=== PATIENT | female | born 1965 | race Caucasian/White ===

== ENCOUNTER 2017-11-03 10:14 | Emergency (ER) | payer BC ==
[2017-11-03 10:19] VITALS: RESP 18; TEMP 98.5
--- NOTE | 2017-11-03 10:31 | ED ---
General Adult HPI - General Chief complaint: Syncope Stated complaint: syncopal episode Time Seen by Provider: 11/03/17 10:22 Source: patient, RN notes reviewed, old records reviewed Mode of arrival: ambulatory Limitations: no limitations - History of Present Illness Initial comments: This is a 32-year-old female the ER for evaluation of syncopal event. Patient had syncopal event yesterday after waking up. She denies feeling dizzy lightheaded, felt normal throughout the day, no complaints of headache chest pain shortness of breath or abdominal pain. Patient did call her family doctor today who told to come to the ER for evaluation. Patient currently remains without complaint - Related Data Home Medications Medication Instructions Recorded Confirmed Cholecalciferol [Vitamin D3] 1,000 unit PO DAILY 11/03/17 11/03/17 Ferrous Sulfate [Feosol] 325 mg PO DAILY 11/03/17 11/03/17 Multivitamins, Thera [Multivitamin 1 tab PO DAILY 11/03/17 11/03/17 (formulary)] Allergies Allergy/AdvReac Type Severity Reaction Status Date / Time amoxicillin Allergy Rash/Hives Verified 11/03/17 10:37 Review of Systems ROS Statement: Those systems with pertinent positive or pertinent negative responses have been documented in the HPI. ROS Other: All systems not noted in ROS Statement are negative. Past Medical History Additional Past Medical History / Comment(s): low iron- takes pills History of Any Multi-Drug Resistant Organisms: None Reported Past Surgical History: Section Additional Past Surgical History / Comment(s): breast biopsy Past Psychological History: No Psychological Hx Reported Smoking Status: Never smoker Past Alcohol Use History: Occasional Past Drug Use History: None Reported General Exam Limitations: no limitations General appearance: alert, in no apparent distress Head exam: Present: atraumatic, normocephalic, normal inspection Eye exam: Present: normal appearance, PERRL, EOMI. Absent: scleral icterus, conjunctival injection, periorbital swelling ENT exam: Present: normal exam, mucous membranes moist Neck exam: Present: normal inspection. Absent: tenderness, meningismus, lymphadenopathy Respiratory exam: Present: normal lung sounds bilaterally. Absent: respiratory distress, wheezes, rales, rhonchi, stridor Cardiovascular Exam: Present: regular rate, normal rhythm, normal heart sounds. Absent: systolic murmur, diastolic murmur, rubs, gallop, clicks GI/Abdominal exam: Present: soft, normal bowel sounds. Absent: distended, tenderness, guarding, rebound, rigid Extremities exam: Present: normal inspection, full ROM, normal capillary refill. Absent: tenderness, pedal edema, joint swelling, calf tenderness Back exam: Present: normal inspection Neurological exam: Present: alert, oriented X3, CN II-XII intact Psychiatric exam: Present: normal affect, normal mood Skin exam: Present: warm, dry, intact, normal color. Absent: rash Course Vital Signs 11/03/17 11/03/17 11/03/17 10:15 11:25 12:36 Temperature 98.5 F Pulse Rate 84 93 71 Respiratory 18 18 18 Rate Blood Pressure 137/59 134/82 143/77 O2 Sat by Pulse 95 97 100 Oximetry - Reevaluation(s) Reevaluation #1: 11/03/17 12:53 Patient is without syncopal event here in the ER EKG Findings - EKG Comments: EKG Findings:: EKG shows sinus rhythm rate of 75, ME 164, QRS 80, QTC 437 Medical Decision Making - Medical Decision Making 52 female the ER with syncopal event. No recurrent symptoms. Event happened yesterday. Patient here in the ER with normal testing, normal exam, CT labwork is normal. Patient can be discharged home - Lab Data Result diagrams: 11/03/17 10:35 11/03/17 10:35 Lab Results 11/03/17 11/03/17 11/03/17 Range/Units 10:35 10:35 10:35 WBC 5.5 (3.8-10.6) k/uL RBC 4.84 (3.80-5.40) m/uL Hgb 14.3 (11.4-16.0) gm/dL Hct 43.2 (34.0-46.0) % MCV 89.2 (80.0-100.0) fL MCH 29.6 (25.0-35.0) pg MCHC 33.1 (31.0-37.0) g/dL RDW 12.7 (11.5-15.5) % Plt Count 246 (150-450) k/uL Neutrophils % 57 % Lymphocytes % 32 % Monocytes % 6 % Eosinophils % 3 % Basophils % 1 % Neutrophils # 3.1 (1.3-7.7) k/uL Lymphocytes # 1.8 (1.0-4.8) k/uL Monocytes # 0.3 (0-1.0) k/uL Eosinophils # 0.2 (0-0.7) k/uL Basophils # 0.1 (0-0.2) k/uL PT (9.0-12.0) sec INR (<1.2) APTT (22.0-30.0) sec D-Dimer (<0.60) mg/L FEU Sodium 144 (137-145) mmol/L Potassium 4.2 (3.5-5.1) mmol/L Chloride 108 H (98-107) mmol/L Carbon Dioxide 24 (22-30) mmol/L Anion Gap 12 mmol/L BUN 13 (7-17) mg/dL Creatinine 0.64 (0.52-1.04) mg/dL Est GFR (CKD-EPI)AfAm >90 (>60 ml/min/1.73 sqM) Est GFR (CKD-EPI)NonAf >90 (>60 ml/min/1.73 sqM) Glucose 87 (74-99) mg/dL Calcium 9.4 (8.4-10.2) mg/dL Phosphorus 3.2 (2.5-4.5) mg/dL Magnesium 2.0 (1.6-2.3) mg/dL Total Bilirubin 0.3 (0.2-1.3) mg/dL AST 21 (14-36) U/L ALT 25 (9-52) U/L Alkaline Phosphatase 54 (38-126) U/L Total Creatine Kinase 30 (30-135) U/L CK-MB (CK-2) 0.6 (0.0-2.4) ng/mL CK-MB (CK-2) Rel Index 2.0 Troponin I <0.012 (0.000-0.034) ng/mL Total Protein 6.4 (6.3-8.2) g/dL Albumin 4.3 (3.5-5.0) g/dL Urine Color Urine Appearance (Clear) Urine pH (5.0-8.0) Ur Specific [place] (1.001-1.035) Urine Protein (Negative) Urine Glucose (UA) (Negative) Urine Ketones (Negative) Urine Blood (Negative) Urine Nitrite (Negative) Urine Bilirubin (Negative) Urine Urobilinogen (<2.0) mg/dL Ur Leukocyte Esterase (Negative) Urine RBC (0-5) /hpf Urine WBC (0-5) /hpf Ur Squamous Epith Cells (0-4) /hpf Urine Bacteria (None) /hpf Urine Mucus (None) /hpf 11/03/17 11/03/17 Range/Units 10:35 11:35 WBC (3.8-10.6) k/uL RBC (3.80-5.40) m/uL Hgb (11.4-16.0) gm/dL Hct (34.0-46.0) % MCV (80.0-100.0) fL MCH (25.0-35.0) pg MCHC (31.0-37.0) g/dL RDW (11.5-15.5) % Plt Count (150-450) k/uL Neutrophils % % Lymphocytes % % Monocytes % % Eosinophils % % Basophils % % Neutrophils # (1.3-7.7) k/uL Lymphocytes # (1.0-4.8) k/uL Monocytes # (0-1.0) k/uL Eosinophils # (0-0.7) k/uL Basophils # (0-0.2) k/uL PT 10.4 (9.0-12.0) sec INR 1.1 (<1.2) APTT 22.3 (22.0-30.0) sec D-Dimer 0.63 H (<0.60) mg/L FEU Sodium (137-145) mmol/L Potassium (3.5-5.1) mmol/L Chloride (98-107) mmol/L Carbon Dioxide (22-30) mmol/L Anion Gap mmol/L BUN (7-17) mg/dL Creatinine (0.52-1.04) mg/dL Est GFR (CKD-EPI)AfAm (>60 ml/min/1.73 sqM) Est GFR (CKD-EPI)NonAf (>60 ml/min/1.73 sqM) Glucose (74-99) mg/dL Calcium (8.4-10.2) mg/dL Phosphorus (2.5-4.5) mg/dL Magnesium (1.6-2.3) mg/dL Total Bilirubin (0.2-1.3) mg/dL AST (14-36) U/L ALT (9-52) U/L Alkaline Phosphatase (38-126) U/L Total Creatine Kinase (30-135) U/L CK-MB (CK-2) (0.0-2.4) ng/mL CK-MB (CK-2) Rel Index Troponin I (0.000-0.034) ng/mL Total Protein (6.3-8.2) g/dL Albumin (3.5-5.0) g/dL Urine Color Light Yellow Urine Appearance Clear (Clear) Urine pH 6.5 (5.0-8.0) Ur Specific [place] 1.007 (1.001-1.035) Urine Protein Negative (Negative) Urine Glucose (UA) Negative (Negative) Urine Ketones Negative (Negative) Urine Blood Trace H (Negative) Urine Nitrite Negative (Negative) Urine Bilirubin Negative (Negative) Urine Urobilinogen <2.0 (<2.0) mg/dL Ur Leukocyte Esterase Moderate H (Negative) Urine RBC 2 (0-5) /hpf Urine WBC 6 H (0-5) /hpf Ur Squamous Epith Cells 1 (0-4) /hpf Urine Bacteria Rare H (None) /hpf Urine Mucus Rare H (None) /hpf - Radiology Data Radiology results: report reviewed (CT brain C-spine and facial bones, CTA chest negative for acute disease), image reviewed Disposition Clinical Impression: Vasovagal syncope Disposition: HOME SELF-CARE Condition: Good Instructions: Syncope (ED) Is patient prescribed a controlled substance at d/c from ED?: No Referrals: Teja Florian DO [Primary Care Provider] - 1-2 days
[2017-11-03 10:50] LABS: Basophils # (A) 0.1 k/uL (0-0.2); Basophils % (A) 1 %; Eosinophils # (A) 0.2 k/uL (0-0.7); Eosinophils % (A) 3 %; HCT 43.2 % (34.0-46.0); HGB 14.3 gm/dL (11.4-16.0); Lymphocytes # (A) 1.8 k/uL (1.0-4.8); Lymphocytes % (A) 32 %; MCH 29.6 pg (25.0-35.0); MCHC 33.1 g/dL (31.0-37.0); MCV 89.2 fL (80.0-100.0); Mean Platelet Volume 7.3; Monocytes # (A) 0.3 k/uL (0-1.0); Monocytes % (A) 6 %; Neutrophils # (A) 3.1 k/uL (1.3-7.7); Neutrophils % (A) 57 %; Platelet Count 246 k/uL (150-450); RBC 4.84 m/uL (3.80-5.40); RDW 12.7 % (11.5-15.5); WBC 5.5 k/uL (3.8-10.6)
[2017-11-03 11:00] LABS: ALT 25 U/L (9-52); AST 21 U/L (14-36); Albumin 4.3 g/dL (3.5-5.0); Alkaline Phosphatase 54 U/L (38-126); Anion Gap 12 mmol/L; Blood Urea Nitrogen 13 mg/dL (7-17); Calcium 9.4 mg/dL (8.4-10.2); Carbon Dioxide 24 mmol/L (22-30); Chloride 108 mmol/L (98-107); Glucose 87 mg/dL (74-99); Phosphorus 3.2 mg/dL (2.5-4.5); Potassium 4.2 mmol/L (3.5-5.1); Sodium 144 mmol/L (137-145); Total Bilirubin 0.3 mg/dL (0.2-1.3); Total Protein 6.4 g/dL (6.3-8.2)
--- NOTE | 2017-11-03 11:06 | CT ---
EXAMINATION TYPE: CT brain cspine wo con, CT facial bones wo con DATE OF EXAM: 11/03/2017 COMPARISON: NONE HISTORY: Syncopal episode yesterday with left sided orbital injury, facial and neck pain, and headach e. CT DLP: 1385.1 (accession [id number]), 603 (accession [id number]) mGycm. Automated Exposure Control for D ose Reduction was Utilized. TECHNIQUE: CT scan of the head and cervical spine are performed without contrast. FINDINGS: There is no acute intracranial hemorrhage, mass effect, or midline shift identified. The ventricles and sulci are within normal limits in size. Murray-white matter differentiation is maintain ed. The calvarium is intact. Mandible is intact. Temporomandibular joints are maintained bilaterally. The nasal bones are intact. The orbital floors and newby are intact. The globes are intact bilaterally. Intraconal fat is preserv ed. The zygomatic arches are intact. The pterygoid plates are intact. Visualized paranasal sinuses ar e clear. There are nonformed frontal sinuses noted. Cervical spine is visualized in its entirety from C1 through upper thoracic levels and demonstrates s traightened alignment without evidence of acute fracture or dislocation. Prevertebral soft tissue ap pears within normal limits. The C1-C2 articulation is within normal limits on the coronal images. Ve rtebral body heights and disc space heights are maintained. There are mild uncovertebral facet degene rative changes bilaterally. Spinal canal is preserved. Thyroid gland is felt within normal limits. Nallely ng apices are clear. IMPRESSION: 1. There is no acute fracture or dislocation evident in the cervical spine. 2. No acute intracranial hemorrhage, mass effect, or midline shift is seen. 3. No acute facial bone fracture or dislocation is seen.
[2017-11-03 11:11] LABS: INR 1.1 (<1.2); Partial Thromboplastin Time 22.3 sec (22.0-30.0); Prothrombin Time 10.4 sec (9.0-12.0)
[2017-11-03 11:13] LABS: Creatine Kinase 30 U/L (30-135)
[2017-11-03 11:22] LABS: D-Dimer 0.63 mg/L FEU (<0.60)
--- NOTE | 2017-11-03 11:22 | XR ---
EXAMINATION TYPE: XR chest 2V DATE OF EXAM: 11/03/2017 COMPARISON: NONE HISTORY: Syncope, weakness TECHNIQUE: Frontal and lateral views of the chest are obtained. FINDINGS: There is no focal air space opacity, pleural effusion, or pneumothorax seen. The cardiac silhouette size is within normal limits. There are overlying cardiac leads. The osseous structures are intact. IMPRESSION: No acute cardiopulmonary process.
[2017-11-03] MEDS ORDERED: RX INFO: IV CONTRAST WAS GIVEN 1 EACH MISC MISCELLANE PRN (11:23)
[2017-11-03 11:25] LABS: Creatine Kinase MB 0.6 ng/mL (0.0-2.4); Troponin I <0.012 ng/mL (0.000-0.034)
[2017-11-03 11:55] LABS: Appearance,Urine Clear (Clear); Bacteria,Urine Rare /hpf; Bilirubin,Urine Negative (Negative); Blood,Urine Trace (Negative); Color,Urine Light Yellow; Glucose,Urine (UA) Negative (Negative); Ketones,Urine Negative (Negative); Leukocyte Esterase,Urine Moderate (Negative); Mucus,Urine Rare /hpf; Nitrite,Urine Negative (Negative); PH, Urine 6.5 (5.0-8.0); Protein,Urine Negative (Negative); RBC,Urine 2 /hpf (0-5); Specific Gravity,Urine 1.007 (1.001-1.035); Squamous Epithelial Cell,Urine 1 /hpf (0-4); Urobilinogen,Urine <2.0 mg/dL (<2.0); WBC,Urine 6 /hpf (0-5)
--- NOTE | 2017-11-03 12:30 | CT ---
EXAMINATION TYPE: CT angio chest DATE OF EXAM: 11/03/2017 COMPARISON: NONE HISTORY: Syncopal episode CT DLP: 214.80 mGycm. Automated Exposure Control for Dose Reduction was Utilized. CONTRAST: CTA scan of the thorax is performed with IV Contrast, patient injected with 100 ml mL of Isovue 370, pulmonary embolism protocol. MIP Images are created on CT scanner and reviewed. FINDINGS: LUNGS: The lungs are grossly clear, there is no concerning parenchymal mass or nodule identified. T here is no pleural effusion or pneumothorax seen. The tracheobronchial tree is patent. MEDIASTINUM: There is satisfactory enhancement of the pulmonary artery and its branches, there is no CT evidence for pulmonary embolism. There are no greater than 1 cm hilar or mediastinal lymph nodes. No cardiomegaly or pericardial effusion is seen. OTHER: No additional significant abnormality is seen. IMPRESSION: No CT evidence for acute pulmonary embolism. No suspicious acute cardiopulmonary process.
[2017-11-03 12:37] VITALS: BP 143/77; PULSE 71
== END 2017-11-03 13:12 | disposition home or self-care (01) ==
LOC: EC 10:14
DX: R55 Syncope and collapse (principal); Z88.0 Allergy status to penicillin
CPT/HCPCS: 36415; 93005; 85379; 80053; 82550; 82553; 83735; 84100; 84484; 85025; 85610; 85730; 81001; 71046; 72125; 70486; 70450; 71275; 99285; Q9967

== ENCOUNTER → 2017-12-31 | Outpatient (CLI) | payer BC ==
[2017-12-31 13:51] LABS: Basophils # (A) 0.1 k/uL (0-0.2); Basophils % (A) 1 %; Eosinophils # (A) 0.1 k/uL (0-0.7); Eosinophils % (A) 2 %; HCT 42.5 % (34.0-46.0); HGB 14.4 gm/dL (11.4-16.0); Lymphocytes # (A) 2.2 k/uL (1.0-4.8); Lymphocytes % (A) 32 %; MCH 30.7 pg (25.0-35.0); MCHC 33.8 g/dL (31.0-37.0); MCV 90.9 fL (80.0-100.0); Mean Platelet Volume 6.5; Monocytes # (A) 0.4 k/uL (0-1.0); Monocytes % (A) 6 %; Neutrophils % (A) 57 %; Platelet Count 231 k/uL (150-450); RBC 4.68 m/uL (3.80-5.40); RDW 13.3 % (11.5-15.5)
[2017-12-31 15:22] LABS: Anion Gap 13 mmol/L; Blood Urea Nitrogen 12 mg/dL (7-17); Calcium 9.2 mg/dL (8.4-10.2); Carbon Dioxide 20 mmol/L (22-30); Chloride 106 mmol/L (98-107); Glucose 67 mg/dL (74-99); Potassium 4.1 mmol/L (3.5-5.1); Sodium 139 mmol/L (137-145)
== END | disposition home or self-care (01) ==
LOC: LABPAT 13:29
PROVIDERS: ATTEND Obstetrics & Gynecology
DX: Z01.812 Encounter for preprocedural laboratory examination (principal)
CPT/HCPCS: 36415; 80048; 85025; 86850; 86900; 86901

== ENCOUNTER 2018-01-13 05:33 | Inpatient (IN) | payer BC ==
[2018-01-02 15:32] VITALS: BMI 33.2
--- NOTE | 2018-01-12 18:38 | P.HPOB ---
History of Present Illness H&P Date: 01/12/18 Chief Complaint: Uterine fibroids, pelvic pain, dyspareunia This is a 52-year-old female 2 para 2 who presents for total abdominal hysterectomy with bilateral salpingo-oophorectomy secondary to large uterine fibroids, dyspareunia, and pelvic pain. Her latest ultrasound showed uterus measuring 12.3 x 9.8 x 8.6 cm and containing at least 3 fibroids. The largest measured 5 cm. Neither ovary was visualized. Her current symptoms include irregular menses with moderate dysmenorrhea. She also complains of pelvic pressure, pelvic pain and worsening dyspareunia. Her pain radiates to her lower back. She wishes definitive surgical treatment to treat her pain and dyspareunia. Her menses are occurring every 1-2 months and lasting 3 days with very heavy flow on the first day to where she has to change a pad and tampon every 1-2 hours. Obstetrical history: . History of 2 deliveries. Gynecologic history: No history of sexual transmitted diseases. She has had a tubal ligation. Social history: She is . 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 [employer] Constitutional: Denies chills, Denies fever Eyes: denies blurred vision, denies pain Ears, nose, mouth and throat: Denies headache, Denies sore throat Cardiovascular: Denies chest pain, Denies shortness of breath Respiratory: Denies cough Gastrointestinal: Denies abdominal pain, Denies diarrhea, Denies nausea, Denies vomiting Genitourinary: Reports dyspareunia, Reports menorrhagia, Reports pelvic pain, Reports prolapse symptoms Menstruation: Reports menses variable, Reports period heavy Musculoskeletal: Reports low back pain Integumentary: Denies pruritus, Denies rash Neurological: Denies numbness, Denies weakness Psychiatric: Denies anxiety, Denies depression Endocrine: Denies fatigue, Denies weight change Past Medical History Past Medical History: Musculoskeletal Disorder, Osteoarthritis (OA) Additional Past Medical History / Comment(s): Hx of low iron, better now. "Had one fainting episode 11/07, was checked out and found nothing wrong." Degenerative disc in back (L5), back pain. History of Any Multi-Drug Resistant Organisms: None Reported Past Surgical History: Section, Tubal Ligation Additional Past Surgical History / Comment(s): Breast biopsy. Past Anesthesia/Blood Transfusion Reactions: Postoperative Nausea & Vomiting ( PONV) Past Psychological History: No Psychological Hx Reported Smoking Status: Never smoker Past Alcohol Use History: Occasional Past Drug Use History: None Reported - Past Family History Father Family Medical History: Deep Vein Thrombosis (DVT) Medications and Allergies Home Medications Medication Instructions Recorded Confirmed Type Cholecalciferol [Vitamin D3] 1,000 unit PO DAILY 11/03/17 01/02/18 History Multivitamins, Thera [Multivitamin 1 tab PO DAILY 11/03/17 01/02/18 History (formulary)] Allergies Allergy/AdvReac Type Severity Reaction Status Date / Time amoxicillin Allergy Rash/Hives Verified 01/02/18 15:19 Exam Osteopathic Statement: *. No significant issues noted on an osteopathic structural exam other than those noted in the History and Physical/Consult. HEENT: Within normal limits Heart: Regular rate and rhythm Lungs: Clear to auscultation bilaterally Abdomen: Soft, nontender Pelvic exam: Uterus is enlarged approximate 14-15 week size nodular and tender. No adnexal masses are palpated however it is difficult to palpate due to her bulky uterus. She does have second-degree cystocele and first-degree rectocele , There is no uterine prolapse. The nasal: Negative Homans Assessment and Plan (1) Uterine fibroid Status: Acute Code(s): D25.9 - LEIOMYOMA OF UTERUS, UNSPECIFIED SNOMED Code( s): 34408008 (2) Pelvic pain Status: Acute Code(s): R10.2 - PELVIC AND PERINEAL PAIN SNOMED Code(s): 26322078 (3) Dyspareunia Status: Acute Code(s): XDB3344 - SNOMED Code(s): 38345025 Plan: Proceed with total abdominal hysterectomy with bilateral salpingo-oophorectomy. I have discussed the risks, benefits, and alternative therapies for the above- mentioned procedure and for both sedation/anesthesia as well as necessary blood products administration, if indicated, as they pertain to this patient. The patient has indicated her understanding and acceptance of the risks and procedures discussed.
[~2018-01-13 05:33] MED LIST: DEXAMETHASONE SOD PHOSPHATE 10 MG/ML 1 ML VIAL IV ONE; HYDROmorphone 0.5 MG/0.5 ML SYRINGE IVP PRN; LIDOCAINE 1% 20 ML VIAL (10MG/ML) FOR IV START INTRADERMA PRN; MIDAZOLAM 2 MG/2 ML VIAL IV PRN; ONDANSETRON 4 MG/2 ML VIAL IVP ONE; SCOPOLAMINE 1.5MG/72HR PATCH TRANSDERM ONE; ceFAZolin IN SWFI 2 GM/20 ML SYRINGE IVP ONE
[2018-01-13] MEDS ORDERED: LACTATED RINGERS 1,000 ML IV ONE ×3 (06:17→08:06)
--- NOTE | 2018-01-13 08:57 | P.OP ---
Date of Procedure: 01/13/18 Preoperative Diagnosis: 1. Uterine fibroids. 2. Pelvic pain. 3. And dyspareunia. Postoperative Diagnosis: Same Procedure(s) Performed: Total abdominal hysterectomy with bilateral salpingo-oophorectomy Anesthesia: GETA, spinal (Duramorph) Surgeon: Mindy Mitchell Profiling Machine Set Up Operator #1: Xochitl Vazquez Estimated Blood Loss (ml): 250 Urine output (ml): 300 Pathology: other (Uterus with cervix and bilateral tubes and ovaries) Condition: stable Disposition: floor Indications for Procedure: This is a 52-year-old female 2 para 2 who presents for total abdominal hysterectomy with bilateral salpingo-oophorectomy secondary to large uterine fibroids, dyspareunia, and pelvic pain. Her latest ultrasound showed uterus measuring 12.3 x 9.8 x 8.6 cm and containing at least 3 fibroids. The largest measured 5 cm. Neither ovary was visualized. Her current symptoms include irregular menses with moderate dysmenorrhea. She also complains of pelvic pressure, pelvic pain and worsening dyspareunia. Her pain radiates to her lower back. She wishes definitive surgical treatment to treat her pain and dyspareunia. Her menses are occurring every 1-2 months and lasting 3 days with very heavy flow on the first day to where she has to change a pad and tampon every 1-2 hours. Operative Findings: Uterus is enlarged and bulky with multiple fibroids. Both ovaries appeared small and atrophic. Normal tubes are noted. Description of Procedure: The patient is taken to the operating room where she is placed in the dorsal supine position. She is prepped and draped in the normal sterile fashion including Danielle catheter insertion and vaginal prep. A Pfannenstiel skin incision is made with a scalpel. A second knife was used to carry the incision down to the underlying layer of fascia. The fascia was nicked in the midline with a scalpel and then extended laterally bilaterally with Wheeler scissors. The superior aspect of the fascial incision was grasped with Celestine clamps, elevated off the underlying rectus muscle in the midline and then cut with Wheeler scissors. The inferior aspect of the fascial incision was grasped with Celestine clamps, elevated off the underlying rectus muscle in the midline and then cut with Wheeler scissors. Next the peritoneum was identified and entered sharply with Wheeler scissors. It is extended superiorly and in fairly with Metzenbaum scissors with good visualization of underlying structures. Next the Radha retractor is placed in the bladder blade was inserted. The bowels were packed with a 3 yard laparotomy sponge. Next the uterus is brought up incision and the corneal regions are grasped with Pavithra clamps on both sides. The infundibulopelvic ligament was clamped on either side with a Meredith clamp, cut with Wheeler scissors, and sutured with 0 Vicryl suture in Meerdith transfixion stitches. The remaining uterine ovarian ligament and round ligament was clamped on either side with a Meredith clamp, cut with Wheeler scissors, and sutured with 0 Vicryl suture in Meredith transfixion stitches. The vesicouterine peritoneum was sharply dissected away from the bladder with Metzenbaum scissors and pushed inferiorly. The uterine arteries are clamped on either side with a Meredith clamp. The uterine arteries are then cut with Wheeler scissors, and sutured with 0 Vicryl suture in Meredith transfixion stitches. Next the cardinal ligaments were clamped on either side with Meredith clamp, cut with Wheeler scissors , and sutured with 0 Vicryl suture in Meredith transfixion stitches. The uterosacral ligaments are clamped on either side with Meredith clamps, cut with Wheeler scissors, and sutured with 0 Vicryl suture in Meredith transfixion stitches on either side. The edges of the vaginal cuff were clamped on either side with a Meredith clamp, cut with Wheeler scissors, and sutured with 0 Vicryl suture in Meredith transfixion stitches and held on either side. The vaginal mucosa was then cut just below the level of the cervix and the specimen is removed from the field. The edges of the vaginal cuff were held with Celestine clamps. Next the previously held corners of each side of the vaginal cuff were then whipstitched along the connective tissue on either side and brought through the corner of the cuff and tied. Next the vaginal cuff was sutured with 0 Vicryl suture in a running locked fashion. One interrupted stitches placed for hemostasis. Good hemostasis was noted. Copious irrigation is carried out with warm saline. Excellent hemostasis is noted. All sponges are removed from the abdomen and sponge counts are correct. The peritoneum is then closed with 0 Vicryl suture in a running fashion. The muscle was then reapproximated with 0 Vicryl suture in interrupted fashion. The fascia layer is then closed with 0 PDS suture in a running fashion with the knots buried on either side and in the midline. Next the subcutaneous tissues closed with 3-0 Vicryl suture in a running fashion. The skin is closed with naz. All sponge and needle counts are correct and the patient is taken to recovery room in stable condition.
[2018-01-13] MEDS ORDERED: HYDROmorphone 1 MG/ML 1 ML SYRINGE IVP ONE (09:07)
[2018-01-13] MEDS ORDERED: diphenhydrAMINE 50 MG/ML 1 ML VIAL IVP PRN (10:44)
[2018-01-13] MEDS ORDERED: ZOLPIDEM 5 MG TAB PO PRN (10:44)
[2018-01-13] MEDS ORDERED: ONDANSETRON 4 MG/2 ML VIAL IVP PRN (10:44)
[2018-01-13] MEDS ORDERED: METOCLOPRAMIDE 5 MG/ML 2 ML VIAL IVP PRN (10:44)
[2018-01-13] MEDS ORDERED: SIMETHICONE 80 MG CHEWABLE PO PRN (10:44)
[2018-01-13] MEDS ORDERED: Acetaminophen-Codeine 300-30mg TAB PO PRN ×2 (10:44)
[2018-01-13] MEDS ORDERED: NALOXONE 0.4 MG/ML 1 ML VIAL IV PRN (11:52)
[2018-01-13] MEDS ORDERED: NALBUPHINE 10 MG/ML VIAL (10ML MDV) IV PRN (11:52)
[2018-01-13] MEDS: SENNOSIDES-DOCUSATE SODIUM 1 EACH TAB PO SCH ×2 (12:33→22:39)
[2018-01-13] MEDS: LACTATED RINGERS 1,000 ML IV SCH (12:33)
[2018-01-13] MEDS: KETOROLAC 30 MG/ML 1 ML VIAL IVP PRN ×2 (14:34→20:39)
[2018-01-13 22:34] VITALS: RESP 16
[2018-01-14] MEDS: KETOROLAC 30 MG/ML 1 ML VIAL IVP PRN ×2 (04:15→09:22)
--- NOTE | 2018-01-14 05:31 | P.PN ---
Progress Note - Text Progress Note Date: 01/14/18 Postoperative day 1 status post total abdominal hysterectomy under general anesthesia with intrathecal Duramorph for postoperative analgesia.The patient is doing well. The patient denies any paresthesia or weakness in the lower extremities There are no other anesthesia related complications. Further management as per the patient primary team.
[2018-01-14] MEDS: SENNOSIDES-DOCUSATE SODIUM 1 EACH TAB PO SCH ×2 (07:32→21:15)
[2018-01-14] MEDS: LACTATED RINGERS 1,000 ML IV SCH (07:55)
--- NOTE | 2018-01-14 08:18 | P.PN ---
Subjective Progress Note Date: 01/14/18 Principal diagnosis: Status post SEVEN/BSO postoperative day #1 Patient is doing well. She is ambulating. She is passing some flatus. Pain is fairly well controlled at this time. She has not urinated yet but her catheter was just removed less than an hour ago. Bleeding is minimal. Objective - Vital Signs Vital signs: Vital Signs Temp 98.9 F 01/14/18 07:50 Pulse 71 01/14/18 07:50 Resp 16 01/14/18 07:50 BP 136/75 01/14/18 07:50 Pulse Ox 96 01/14/18 07:50 Intake & Output 01/13/18 01/14/18 01/14/18 18:59 06:59 18:59 Intake Total 1160 Output Total 1200 1850 Balance -40 -1850 Weight 77.111 kg Intake: IV 800 Oral 360 Output: Urine 950 1850 Estimated Blood Loss 250 Other: Voiding Method Indwelling Catheter Indwelling Catheter - Constitutional General appearance: Present: cooperative, no acute distress - Gastrointestinal Gastrointestinal Comment(s): Incision is clean dry and intact with naz in place. General gastrointestinal: Present: normal bowel sounds, soft. Absent: tenderness Assessment and Plan Assessment: Impression is status post SEVEN/BSO postoperative day #1 (1) Uterine fibroid Current Visit: No Status: Acute Code(s): D25.9 - LEIOMYOMA OF UTERUS, UNSPECIFIED SNOMED Code(s): 71013471 (2) Pelvic pain Current Visit: No Status: Acute Code(s): R10.2 - PELVIC AND PERINEAL PAIN SNOMED Code(s): 82288852 (3) Dyspareunia Current Visit: No Status: Acute Code(s): [id number] - SNOMED Code(s): 34206980 Plan: Will advance diet as tolerated. Encouraged ambulation. Will switch to oral pain medication today.
[2018-01-14 08:20] LABS: Basophils % (A) 0 %; Eosinophils % (A) 1 %; HGB 12.3 gm/dL (11.4-16.0); Lymphocytes # (A) 2.1 k/uL (1.0-4.8); Lymphocytes % (A) 27 %; MCH 29.5 pg (25.0-35.0); MCHC 32.4 g/dL (31.0-37.0); Mean Platelet Volume 6.5; Monocytes # (A) 0.5 k/uL (0-1.0); Monocytes % (A) 6 %; Neutrophils % (A) 64 %; Platelet Count 242 k/uL (150-450); RBC 4.18 m/uL (3.80-5.40); RDW 12.9 % (11.5-15.5); WBC 7.8 k/uL (3.8-10.6)
[2018-01-14] MEDS: IBUPROFEN 600 MG TAB PO PRN (17:39)
[2018-01-14] MEDS: ACETAMINOPHEN TAB 325 MG TAB PO PRN (21:15)
[2018-01-14] MEDS ORDERED: IBUPROFEN 600 MG TAB PO ONE (23:50)
[2018-01-15] MEDS: ACETAMINOPHEN TAB 325 MG TAB PO PRN (05:19)
[2018-01-15] MEDS: IBUPROFEN 600 MG TAB PO PRN (07:32)
[2018-01-15 07:48] VITALS: BP 144/79; PULSE 71; TEMP 98.1
--- NOTE | 2018-01-15 08:20 | P.DS ---
Providers Date of admission: 01/13/18 05:33 Expected date of discharge: 01/15/18 Attending physician: Mindy Mitchell Primary care physician: Teja Florian - Discharge Diagnosis(es) (1) Uterine fibroid Current Visit: No Status: Acute (2) Pelvic pain Current Visit: No Status: Acute (3) Dyspareunia Current Visit: No Status: Acute Hospital Course: This is a 52-year-old female who underwent a total abdominal hysterectomy with bilateral submental nephrectomy on 01/13/2018. Her postoperative course has been uncomplicated. She did have a spinal Duramorph for the first 24 hours and then switch to oral pain medication. Her pain is fairly well controlled with ibuprofen. She did not like the Tylenol with Codeine due to stomach issues. She does not wish to try [place]. She is passing flatus but no bowel movement yet. She is ambulating. Bleeding is minimal. She is urinating without difficulty. Vital signs are stable. Abdomen is soft with positive bowel sounds 4. Incision is clean dry and intact. Extremities show negative Homans. Impression is status post total abdominal hysterectomy with bilateral topical nephrectomy postoperative day #2. Plan is to discharge home today. Lewis will be removed and Steri-Strips placed prior to discharge. She is advised follow-up in the office in 1 week for a postoperative check. She will be given prescription for ibuprofen. She is advised to call the office if she has any further questions or concerns prior to her appointment time. Procedures: Total abdominal hysterectomy with bilateral salpingo-oophorectomy on 01/13/2018 Patient Condition at Discharge: Stable Plan - Discharge Summary Discharge Rx Participant: Yes New Discharge Prescriptions: New Ibuprofen [Motrin] 600 mg PO Q6HR PRN #60 tab PRN Reason: Mild Discomfort Continue Multivitamins, Thera [Multivitamin (formulary)] 1 tab PO DAILY Cholecalciferol [Vitamin D3] 1,000 unit PO DAILY Discharge Medication List Cholecalciferol [Vitamin D3] 1,000 unit PO DAILY 11/03/17 [History] Multivitamins, Thera [Multivitamin (formulary)] 1 tab PO DAILY 11/03/17 [History ] Ibuprofen [Motrin] 600 mg PO Q6HR PRN #60 tab 01/15/18 [Rx] Follow up Appointment(s)/Referral(s): Mindy Mitchell DO [Doctor of Osteopathic Medicine] - 1 Week Patient Instructions/Handouts: *Surgery [facility] - Scopalamine Patch Instructions Activity/Diet/Wound Care/Special Instructions: Activity as tolerated. Diet as tolerated. May shower, but no tub baths for 1 week. No driving until reaction time normal. No heavy lifting. No intercourse. Discharge Disposition: HOME SELF-CARE
== END 2018-01-15 10:45 | disposition home or self-care (01) | DRG 743 ==
LOC: 2ORMAIN 05:33 → 4FBP 09:01
PROVIDERS: ADMIT Obstetrics & Gynecology; ATTEND Obstetrics & Gynecology
PROC: 0UT20ZZ Resection of Bilateral Ovaries, Open Approach (ICD-10-PCS; 2018-01-13)
PROC: 0UT70ZZ Resection of Bilateral Fallopian Tubes, Open Approach (ICD-10-PCS; 2018-01-13)
PROC: 0UT90ZZ Resection of Uterus, Open Approach (ICD-10-PCS; principal; 2018-01-13 07:30)
DX: D25.9 Leiomyoma of uterus, unspecified (principal); N94.10 Unspecified dyspareunia; M19.90 Unspecified osteoarthritis, unspecified site; R10.2 Pelvic and perineal pain; M51.36 Other intervertebral disc degeneration, lumbar region; Z98.891 History of uterine scar from previous surgery; Z98.51 Tubal ligation status; Z88.0 Allergy status to penicillin
CPT/HCPCS: 81025; 85025; 86850; 86900; 86901; 88307

== ENCOUNTER → 2018-12-16 | Outpatient (CLI) | payer BC ==
--- NOTE | 2018-12-16 21:49 | BD ---
EXAMINATION TYPE: Axial Bone Density DATE OF EXAM: 12/16/2018 COMPARISON: NONE CLINICAL HISTORY: 53-year-old female screening for osteoporosis Height: 5 FT 5 IN Weight: 173 RISK FACTORS HISTORY OF: Active: YES Postmenopausal woman: TOTAL HYST AGE 52 MEDICATIONS: Additional Medications: NONE Additional History: EXAM MEASUREMENTS: Bone mineral densitometry was performed using the [employer]. Bone mineral density as measured about the Lumbar spine is: ----- L1-L4(G/cm2): 0.939 T Score Values are as follows: ----- L2: -1.6 ----- L3: -2.1 ----- L4: -2.1 ----- L1-L4: -2.0 BASELINE Bone mineral density about the R hip (g/cm2): 0.741 Bone mineral density about the L hip (g/cm2): 0.783 T Score values are as follows: -----R Neck: -2.1 -----L Neck: -1.8 -----R Total: -1.2 -----L Total: -0.8 BASELINE IMPRESSION: Osteopenia (T Score between -2.5 and -1). There is slightly increased risk of fracture and the patient may be considered for treatment. Re-Screen 2-5 years. NOTE: T-SCORE=SD OF THE YOUNG ADULT MEAN.
--- NOTE | 2018-12-17 13:16 | MM ---
Reason for exam: screening (asymptomatic). Last mammogram was performed 2 years and 4 months ago. History: Patient is postmenopausal. Benign excisional biopsy of the left breast, 2007. Physical Findings: A clinical breast exam by your physician is recommended on an annual basis and results should be correlated with mammographic findings. MG 3D Screening Mammo W/Cad Bilateral CC and MLO view(s) were taken. Prior study comparison: August 07, 2016, mammogram. August 01, 2016, mammogram. April 11, 2014, mammogram. January 21, 2013, mammogram. February 16, 2008, left breast digital mammogram. August 14, 2007, bilateral screening mammogram w/CAD. The breast tissue is heterogeneously dense. This may lower the sensitivity of mammography. No suspicious abnormality. No significant changes when compared with prior studies. ASSESSMENT: Negative, BI-RAD 1 RECOMMENDATION: Routine screening mammogram of both breasts in 1 year.
== END | disposition home or self-care (01) ==
LOC: RADMAMWWP 09:43
PROVIDERS: ATTEND Obstetrics & Gynecology
DX: Z12.31 Encounter for screening mammogram for malignant neoplasm of breast (principal); M85.851 Other specified disorders of bone density and structure, right thigh; M85.852 Other specified disorders of bone density and structure, left thigh; M85.88 Other specified disorders of bone density and structure, other site
CPT/HCPCS: 77063; 77067; 77080

== ENCOUNTER → 2022-09-24 | Outpatient (CLI) | payer BC ==
--- NOTE | 2022-09-25 07:40 | MM ---
Reason for Exam: Screening (asymptomatic). Last mammogram was performed 1 year(s) and 7 month(s) ago. Patient History: Menarche at age 12. First Full-Term at age 21. Left ovary removed at age 52. Right ovary removed at age 52. Hysterectomy at age 52. Postmenopausal. 2007, Benign Excisional Biopsy on the left side. Risk Values: Penny 5 year model risk: 1.3%. NCI Lifetime model risk: 7.2%. Prior Study Comparison: 08/07/2016 Screening Mammogram, Unknown. 12/16/2018 Bilateral Screening Mammogram, [facility]. 02/21/2021 Bilateral Screening Mammogram, [facility]. Tissue Density: There are scattered fibroglandular densities. Findings: Analyzed By CAD. There are tiny benign round Calcifications scattered throughout the bilateral breasts. Benign-appearing bilateral axillary lymph nodes are present. There is no suspicious group of microcalcifications or new suspicious mass in either breast. Overall Assessment: Benign, BI-RAD 2 Management: Screening Mammogram of both breasts in 1 year. A clinical breast exam by your physician is recommended on an annual basis and results should be correlated with mammographic findings. Electronically signed and approved by: Manolo Lloyd M.D.
== END | disposition home or self-care (01) ==
LOC: RADMAMWWP 08:08
PROVIDERS: ATTEND Obstetrics & Gynecology
DX: Z12.31 Encounter for screening mammogram for malignant neoplasm of breast (principal); Z78.0 Asymptomatic menopausal state
CPT/HCPCS: 77063; 77067

== ENCOUNTER 2023-02-24 17:05 | Emergency (ER) | payer BC, OTHER ==
[2023-02-24 17:10] VITALS: TEMP 98.9
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
[2023-02-24 17:34] LABS: Basophils % (A) 0 %; Eosinophils % (A) 2 %; HGB 13.8 gm/dL (11.4-16.0); Lymphocytes % (A) 39 %; MCH 30.1 pg (25.0-35.0); MCHC 33.6 g/dL (31.0-37.0); MCV 89.6 fL (80.0-100.0); Mean Platelet Volume 8.2; Monocytes % (A) 5 %; Neutrophils # (A) 3.9 k/uL (1.3-7.7); Neutrophils % (A) 52 %; Platelet Count 221 k/uL (150-450); RBC 4.58 m/uL (3.80-5.40); RDW 12.5 % (11.5-15.5); WBC 7.6 k/uL (3.8-10.6)
[2023-02-24 17:35] LABS: Eosinophils # (A) 0.2 k/uL (0-0.7); Monocytes # (A) 0.3 k/uL (0-1.0)
[2023-02-24 17:50] LABS: ALT 15 U/L (4-34); AST 22 U/L (14-36); African American GFR (CKD) >90 (>60 ml/min/1.73 sqM); Albumin 4.1 g/dL (3.5-5.0); Alcohol <10 mg/dL; Alkaline Phosphatase 62 U/L (38-126); Anion Gap 9 mmol/L; Blood Urea Nitrogen 14 mg/dL (7-17); Calcium 9.4 mg/dL (8.4-10.2); Carbon Dioxide 22 mmol/L (22-30); Chloride 106 mmol/L (98-107); Glucose 122 mg/dL (74-99); Non-African American GFR(CKD) 79 (>60 ml/min/1.73 sqM); Potassium 3.3 mmol/L (3.5-5.1); Sodium 137 mmol/L (137-145); Total Bilirubin 0.3 mg/dL (0.2-1.3); Total Protein 6.6 g/dL (6.3-8.2)
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
[2023-02-24 19:04] VITALS: RESP 16
[2023-02-24 19:28] VITALS: BP 129/70; PULSE 97
[2023-02-24 19:45] LABS: Amphetamine Screen,Urine Not Detected (NotDetected); Barbiturate Screen,Urine Not Detected (NotDetected); Benzodiazepines Screen,Urine Not Detected (NotDetected); Cocaine Screen,Urine Not Detected (NotDetected); Methadone Screen, Urine Not Detected (NotDetected); Opiate Screen,Urine Not Detected (NotDetected); Oxycodone Screen, Urine Not Detected (NotDetected); Phencyclidine Screen,Urine Not Detected (NotDetected); Tricyclic Antidepressant,Urine Not Detected (NotDetected); Urn Cannabinoid Scrn Not Detected (NotDetected)
== END 2023-02-24 19:28 | disposition home or self-care (01) ==
LOC: EC 17:05
DX: S70.02XA Contusion of left hip, initial encounter (principal); M19.90 Unspecified osteoarthritis, unspecified site; Z88.0 Allergy status to penicillin; Z79.899 Other long term (current) drug therapy; V49.40XA Driver injured in collision with unspecified motor vehicles in traffic accident, initial encounter
CPT/HCPCS: 99285 ×2; 36415; 93005; 80053; 84484; 85025; 80306; 80320; 72125; 70450; 71260; 74177; Q9967

== ENCOUNTER → 2023-11-13 | Outpatient (CLI) | payer BC ==
--- NOTE | 2023-11-13 17:26 | XR ---
EXAMINATION TYPE: XR abdomen complete w decub DATE OF EXAM: 11/13/2023 COMPARISON: None INDICATION: Diarrhea TECHNIQUE: Abdomen is examined in the supine upright and lateral decubitus views. FINDINGS: Normal colonic bowel gas is present. No suspicious differential air-fluid levels are evident. There m ay be a couple of air-fluid levels within the ascending and proximal transverse colon. Findings can b e related to gastroenteritis. Psoas margins are normal. No organomegaly is present. No mass effect is evident. No suspicious calcifications are evident. No free air is present. IMPRESSION: 1. Nonspecific bowel gas. Correlate for gastroenteritis.
== END | disposition home or self-care (01) ==
LOC: RADXRMAIN 10:00
PROVIDERS: ATTEND Family Medicine
DX: R19.7 Diarrhea, unspecified (principal)
CPT/HCPCS: 74021

== ENCOUNTER → 2023-12-10 | Outpatient (CLI) | payer BC ==
--- NOTE | 2023-12-11 11:36 | BD ---
EXAMINATION TYPE: Axial Bone Density DATE OF EXAM: 12/10/2023 CLINICAL HISTORY: 58 years old Female. ICD-10 CODE: M85.80 DISORDERS OF BONE DENSITY Height: 61 Weight: 172.6 FRAX RISK QUESTIONS: Alcohol (3 or more units per day): no Family History (Parent hip fracture): no Glucocorticoids (More than 3mos): no (Ex: prednisone, prednisolone, methylprednisolone, dexamethasone, and hydrocortisone). History of Fracture in Adulthood: no Secondary Osteoporosis: 1. Type 1 Diabetes: no 2. Hyperthyroidism: no 3. Menopause before 45: no 4. Malnutrition: no 5. Chronic liver disease: no Rheumatoid Arthritis: no Current Tobacco Use: no RISK FACTORS HISTORY OF: Surgery to Spine/Hip(right/left)/Wrist (right/left): no EXAM MEASUREMENTS: Bone mineral densitometry was performed using the [employer] System. Bone mineral density as measured about the Lumbar spine is: ----- L1-L4(G/cm2): 0.919 T Score Values are as follows: ----- L1: -2.8 ----- L2: -2.1 ----- L3: -1.6 ----- L4: -2.4 ----- L1-L4: -2.2 Z Score Values are as follows: ----- L1: -2.0 ----- L2: -1.3 ----- L3: -0.8 ----- L4: -1.6 ----- L1-L4: -1.4 Bone mineral density has: decreased -0.8 % since study of: 02.21.2021 Bone mineral density about the R hip (g/cm2): 0.854 Bone mineral density about the L hip (g/cm2): 0.910 T Score values are as follows: -----R Neck: -2.2 -----L Neck: -1.8 -----R Total: -1.2 -----L Total: -0.8 Z Score values are as follows: -----R Neck: -1.2 -----L Neck: -0.9 -----R Total: -0.6 -----L Total: -0.1 Bone mineral density has: increased 0.7 % since study of: 9.1.2020 FRAX%s: The graph provided illustrates a 9.8% chance for a major osteoporotic fx and a 1.4% chance fo r the hips probability for fx in 10 years time. IMPRESSION: Osteopenia (T Score between -2.5 and -1). There is slightly increased risk of fracture and the patient may be considered for treatment. Re-Screen 2-5 years. NOTE: T-SCORE=SD OF THE YOUNG ADULT MEAN.
--- NOTE | 2023-12-12 13:51 | MM ---
Reason for Exam: Screening (asymptomatic). Last mammogram was performed 1 year(s) and 2 month(s) ago. Patient History: Menarche at age 12. First Full-Term at age 21. Left ovary removed at age 52. Right ovary removed at age 52. Hysterectomy at age 52. Postmenopausal. 2007, Benign Excisional Biopsy on the left side. Risk Values: Penny 5 year model risk: 1.4%. NCI Lifetime model risk: 7.1%. Prior Study Comparison: 12/16/2018 Bilateral Screening Mammogram, [facility]. 02/21/2021 Bilateral Screening Mammogram, [facility]. 09/24/2022 Bilateral MG 3D screening mammo w/cad, [facility]. Tissue Density: There are scattered areas of fibroglandular density. Findings: Analyzed By CAD. Right breast: There is no suspicious group of microcalcifications or new suspicious mass. Left breast: There is no suspicious group of microcalcifications or new suspicious mass. Overall Assessment: Negative, BI-RAD 1 Management: Screening Mammogram of both breasts in [address] [facility] will attempt to contact patient to return for supplemental views and ultrasound if indicated. Patient should continue monthly self-breast exams. A clinical breast exam by your physician is recommended on an annual basis. This exam should not preclude additional follow-up of suspicious palpable abnormalities. Note on Penny scores and lifetime risk: 1. A Penny score greater than 3% is considered moderate risk. If this is the case, consider specialist referral to assess eligibility for a risk reducing agent. 2. If overall lifetime risk for the development of breast cancer is 20% or higher, the patient may qualify for future screening with alternating mammogram and breast MRI. Electronically signed and approved by: Conrado Castillo DO
== END | disposition home or self-care (01) ==
LOC: RADMAMWWP 15:21
PROVIDERS: ATTEND Family Medicine
DX: Z12.31 Encounter for screening mammogram for malignant neoplasm of breast (principal); M81.0 Age-related osteoporosis without current pathological fracture; M85.89 Other specified disorders of bone density and structure, multiple sites; Z78.0 Asymptomatic menopausal state
CPT/HCPCS: 77063; 77067; 77080